=== PATIENT | male | born 1995 | race African-American/Black ===

== ENCOUNTER 2023-04-12 00:25 | Emergency (ER) | payer SELFPAY ==
[~2023-04-12] VITALS: Ht 165.1 cm; Wt 61.5 kg
[~2023-04-12 00:25] MED LIST: CIPR-173 PO; METR500T PO; PERCOT PO
[2023-04-12 00:52] VITALS: BP 127/73; PULSE 85; RESP 18; O2SAT 98
== END 2023-04-12 02:31 | disposition left against medical advice (07) ==
LOC: ER 00:25
DX: T78.40XA Allergy, unspecified, initial encounter (principal); X58.XXXA Exposure to other specified factors, initial encounter; Z53.21 Procedure and treatment not carried out due to patient leaving prior to being seen by health care provider